=== PATIENT | male | born 1940 | race Hispanic/Latino ===

== ENCOUNTER → 2024-03-28 | Outpatient (REF) | payer OTHER ==
[~2024-03-28] MED LIST: IOPAMIDOL 370 MG/ML 100 ML INFUS..BTL INJ ONE; NITROGLYCERIN 0.4 MG SUBL ONE; SODIUM CHLORIDE 0.9% 100 ML ONE
[2024-03-28 10:43] LABS: CREATININE, SERUM 0.88 mg/dL (0.72-1.25)
== END ==
LOC: CT 09:42
PROVIDERS: ATTEND Internal Medicine Cardiovascular Disease
DX: Z01.818 Encounter for other preprocedural examination (principal); R07.89 Other chest pain; I50.1 Left ventricular failure, unspecified; R94.31 Abnormal electrocardiogram [ECG] [EKG]
CPT/HCPCS: 36415; 75574; 82565; 84520; J7050; Q9967